=== PATIENT | male | born 1970 | race Caucasian/White ===

== ENCOUNTER 2018-01-20 20:21 | Emergency (ER) | payer MEDICAID ==
[~2018-01-20] VITALS: Ht 172.7 cm; Wt 99.8 kg
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
--- NOTE | 2018-01-20 21:07 | NUR ---
EMT AT BEDSIDE FOR EYE IRRIGATION PER MD
[2018-01-20 21:12] LABS: BASOPHILS % (AUTO) 0.4 % (0.0-2.0); EOSINOPHILS % (AUTO) 1.3 % (0.0-6.0); HEMATOCRIT 38 % (39-51); HEMOGLOBIN 12.9 g/dL (13.5-17.5); LYMPHOCYTES # (AUTO) 3.3 /CMM (0.8-4.8); LYMPHOCYTES % (AUTO) 30.8 % (20.0-44.0); MEAN CORPUSCULAR HEMOGLOBIN 29 PG (26.0-33.0); MEAN CORPUSCULAR HGB CONC 34 g/dl (31.0-36.0); MEAN CORPUSCULAR VOLUME 83 fL (80-96); MONOCYTES # (AUTO) 1.5 /CMM (0.1-1.30); MONOCYTES % (AUTO) 13.8 % (2.0-12.0); NEUTROPHILS # (AUTO) 5.8 /CMM (1.8-8.9); NEUTROPHILS % (AUTO) 53.7 % (43.0-81.0); PLATELET COUNT (AUTO) 266 /CMM (150-450); RDW COEFFICIENT OF VARIATION 11.7 (11.5-15.0); RED BLOOD CELL COUNT(AUTO) 4.53 MIL/uL (4.5-6.0); WHITE BLOOD COUNT (AUTO) 10.7 K/uL (4.3-11.0)
[2018-01-20] MEDS ORDERED: KETOROLAC TROMETHAMINE 15 MG/ML VIAL ONE (21:13)
[2018-01-20] MEDS ORDERED: diphenhydrAMINE HCL 50 MG CAPSULE ONE (21:13)
--- NOTE | 2018-01-20 21:25 | NUR ---
DESPITE EDUCATION ON RISKS OF REFUSING EYE IRRIGATION, PT REFUSES TO ALLOW EMT DEBORA TO IRRIGATE HIS EYES WITH SALINE. NAD NOTED.
[2018-01-20 21:33] LABS: CALCIUM, SERUM 8.8 mg/dL (8.5-10.1); POTASSIUM 3.3 mmol/L (3.5-5.1)
[2018-01-20] MEDS: diphenhydrAMINE HCL 25 MG CAPSULE PO ONE (21:35)
[2018-01-20] MEDS: KETOROLAC TROMETHAMINE INJ 60 MG/2 ML VIAL IM ONE (21:35)
--- NOTE | 2018-01-20 21:46 | NUR ---
PT NOW CONSENTS TO EYE IRRIGATION. NO SKIN LESIONS NOTED BUT PT REPORTS ITCHING. EDUCATED PT FURTHER ON BENADRYL USE. MD CARLTON AT BEDSIDE FOR REASSESSMENT. NAD NOTED.
--- NOTE | 2018-01-20 22:15 | NUR ---
TOMEKA, NURSING MEDICAL MASSAGE THERAPIST, AT BEDSIDE.
--- NOTE | 2018-01-20 22:53 | NUR ---
PT REQUESTING MEDICAL RECORDS AND POISON CONTROL PHONE NUMBER. PROVIDED WITH PHONE NUMBER FOR POISON CONTROL, HOWEVER PT WAS EDUCATED THAT WE CANNOT RELEASE MEDICAL RECORDS FROM ER AND HE MUST FOLLOW UP WITH MEDICAL RECORDS TO OBTAIN COPIES OF HIS CHART. ASSISTED FROM ER BY WHEELCHAIR WITH SECURITY ASSISTANCE. Addendum: 01/20/18 at 2254 by HFOX GIVEN PAPER SCRUB TOP TO WEAR, PT STATED HE WONT PUT HIS SHIRT BACK ON.
[2018-01-20 22:56] VITALS: BP 132/63
== END 2018-01-20 22:57 | disposition home or self-care (01) ==
LOC: ER 20:24
DX: H57.10 Ocular pain, unspecified eye (principal); Z86.19 Personal history of other infectious and parasitic diseases; F32.9 Major depressive disorder, single episode, unspecified; F17.200 Nicotine dependence, unspecified, uncomplicated
CPT/HCPCS: 36415; 80048-TC; 85025-TC; A4606; J1885; Q0163; Z7610

== ENCOUNTER 2018-01-21 00:38 | Emergency (ER) | payer MEDICAID ==
[~2018-01-21] VITALS: Ht 167.6 cm; Wt 76.2 kg
[2018-01-21 00:38] VITALS: BP 145/69
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
== END 2018-01-21 03:05 | disposition left against medical advice (07) ==
LOC: ER 00:40
DX: Z53.21 Procedure and treatment not carried out due to patient leaving prior to being seen by health care provider (principal); F32.9 Major depressive disorder, single episode, unspecified; F17.200 Nicotine dependence, unspecified, uncomplicated; Z86.19 Personal history of other infectious and parasitic diseases
CPT/HCPCS: A4606; Z7610

== ENCOUNTER 2020-01-28 05:37 | Emergency (ER) | payer OTHER ==
[~2020-01-28] VITALS: Ht 172.7 cm; Wt 70.3 kg
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
--- NOTE | 2020-01-28 06:42 | NUR ---
BLOOD COLLECTED AND SENT TO LAB WITH SURGICAL PATHOLOGIST.
--- NOTE | 2020-01-28 06:43 | NUR ---
XRAY AT BEDSIDE
[2020-01-28 07:04] LABS: CALCIUM, SERUM 8.9 mg/dL (8.5-10.1); CARBON DIOXIDE 27 mmol/L (21-32); CHLORIDE 103 mmol/L (98-107); CREATININE 0.7 mg/dL (0.6-1.3); GLUCOSE 90 mg/dL (74-106); POTASSIUM 3.4 mmol/L (3.5-5.1); SODIUM SERUM 137 mmol/L (136-145); UREA NITROGEN, BLOOD 15 mg/dL (7-18)
[2020-01-28 07:15] LABS: BASOPHILS % (AUTO) 0.3 % (0.0-2.0); EOSINOPHILS % (AUTO) 0.9 % (0.0-6.0); HEMATOCRIT 45 % (39-51); HEMOGLOBIN 14.6 g/dL (13.5-17.5); LYMPHOCYTES # (AUTO) 1.7 /CMM (0.8-4.8); LYMPHOCYTES % (AUTO) 27.8 % (20.0-44.0); MEAN CORPUSCULAR HGB CONC 32 g/dl (31.0-36.0); MEAN CORPUSCULAR VOLUME 89 fL (80-96); MONOCYTES # (AUTO) 0.8 /CMM (0.1-1.30); MONOCYTES % (AUTO) 12.8 % (2.0-12.0); NEUTROPHILS # (AUTO) 3.5 /CMM (1.8-8.9); NEUTROPHILS % (AUTO) 58.2 % (43.0-81.0); PLATELET COUNT (AUTO) 196 /CMM (150-450); RED BLOOD CELL COUNT(AUTO) 5.06 MIL/uL (4.5-6.0); WHITE BLOOD COUNT (AUTO) 5.9 K/uL (4.3-11.0)
[2020-01-28 07:17] LABS: ALANINE AMINOTRANSFERASE 257 U/L (12-78); ALBUMIN 3.7 g/dL (3.4-5.0); ALKALINE PHOSPHATASE 51 U/L (46-116); ASPARTATE AMINOTRANSFERASE 141 U/L (15-37); B-TYPE NATRIURETIC PEPTIDE 59 PG/ML (0-125); BILIRUBIN,DIRECT 0.2 mg/dL (0.0-0.2); BILIRUBIN,TOTAL 0.4 mg/dL (0.2-1.0); TOTAL PROTEIN, SERUM 7.9 g/dL (6.4-8.2)
--- NOTE | 2020-01-28 07:29 | NUR ---
IV removed. Catheter intact and site benign. Pressure and 4x4 applied to site. No bleeding noted.
--- NOTE | 2020-01-28 07:30 | NUR ---
PATIENT IS NOW IN CUSTODY OF [facility].
--- NOTE | 2020-01-28 07:30 | NUR ---
Patient discharged to home in stable condition. Written and verbal after care instructions given. Patient verbalizes understanding of instruction.
[2020-01-28 07:34] VITALS: BP 128/77
== END 2020-01-28 07:35 ==
LOC: ER 05:39
DX: R07.89 Other chest pain (principal); M25.511 Pain in right shoulder; E11.9 Type 2 diabetes mellitus without complications; Z86.19 Personal history of other infectious and parasitic diseases
CPT/HCPCS: 36415; 71045-TC; 80048-TC; 80076-TC; 83880; 84484-TC; 85025-TC

== ENCOUNTER 2020-01-29 08:57 | Emergency (ER) | payer OTHER ==
[~2020-01-29] VITALS: Ht 172.7 cm; Wt 74.8 kg
--- NOTE | 2020-01-29 08:59 | NUR ---
AT BEDSIDE FOR EVAL.
[2020-01-29] MEDS ORDERED: IBUPROFEN 600 MG TABLET PO ONE ×3 (09:00→09:30)
[2020-01-29 09:04] VITALS: BP 132/90
--- NOTE | 2020-01-29 09:11 | NUR ---
Patient discharged in custody in stable condition. Written and verbal after care instructions given. Patient verbalizes understanding of instruction.
== END 2020-01-29 09:19 ==
LOC: ER 08:58
DX: S33.5XXA Sprain of ligaments of lumbar spine, initial encounter (principal); E11.9 Type 2 diabetes mellitus without complications; Z86.19 Personal history of other infectious and parasitic diseases; X58.XXXA Exposure to other specified factors, initial encounter; Y93.89 Activity, other specified; Y92.89 Other specified places as the place of occurrence of the external cause; Y99.8 Other external cause status